=== PATIENT | female | born 1995 | race Caucasian/White ===

== ENCOUNTER 2017-10-15 19:56 | Emergency (ER) | payer BC ==
[2017-10-15 20:31] VITALS: BP 120/81; PULSE 80; RESP 18; TEMP 99.6; O2SAT 99
[2017-10-15 21:59] LABS: BARBITURATES, UR NEGATIVE (NEGATIVE); BENZODIAZEPINES, UR NEGATIVE (NEGATIVE); OPIATES, UR NEGATIVE (NEGATIVE); PHENCYCLIDINE, UR NEGATIVE (NEGATIVE)
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
== END 2017-10-15 23:30 | disposition home or self-care (01) ==
LOC: H.ER 19:56
DX: S09.90XA Unspecified injury of head, initial encounter (principal); Y04.0XXA Assault by unarmed brawl or fight, initial encounter; Y92.89 Other specified places as the place of occurrence of the external cause
CPT/HCPCS: 70450; 81025; 99283; G0480